=== PATIENT | female | born 2000 | race Caucasian/White ===

== ENCOUNTER 2023-03-11 07:24 | Day surgery (SDC) | payer OTHER ==
[~2023-03-11] VITALS: Ht 157.5 cm; Wt 96.7 kg
[2023-03-11 07:50] VITALS: BP 114/80; PULSE 80; TEMP 97.6
[2023-03-11] MEDS ORDERED: ZYRTEC 10MG10 MG PO (07:55)
--- NOTE | 2023-03-11 08:10 | NUR ---
The patient ambulated back to [facility] independently using a steady gait and appeared to tolerate the activity well. Vital signs obtained. Consent signed. 20G IV started in right hand with one stick, LR infusng. Assessment completed. Home medications reconcilled. brought back to be at bedside. Warm blanket provided. Call light is within reach. Denies any further needs.
[2023-03-11 09:38] VITALS: BP 101/57; PULSE 71; TEMP 96.7
[2023-03-11 09:45] VITALS: BP 110/70; PULSE 74
[2023-03-11 10:00] VITALS: BP 101/67; PULSE 71
--- NOTE | 2023-03-11 10:17 | NUR ---
0938- PATIENT RETURNS TO [facility] VIA CART. PT AWAKE AND ALERT. RESPIRATIONS UNLABORED. AMBULATED TO RECLINER CHAIR WITH 2:1 SBA. PT DENIES NAUSEA OR ABDOMINAL PAIN. HOOKED UP TO MONITOR AND VS OBTAINED. CALL LIGHT AT SIDE AND FAMILY PRESENT. 0946- PATIENT TOLERATING GRAPE AND MUFFIN WITHOUT NAUSEA. 0959- D/C INSTRUCTIONS REVIEWED WITH PATIENT. PT VERBALIZED UNDERSTANDING AND A COPY OF INSTRUCTIONS PROVIDED IN D/C FOLDER. 1005- PATIENT DRESSES SELF. 1010- DR. ALVARADO IN ROOM SPEAKING WITH PATIENT. 1017- PATIENT DISCHARGED FROM UNIT VIA W/C TO A PERSONAL VEHICLE. PT LEFT HOSPITAL IN STABLE CONDITION.
== END 2023-03-11 10:17 | disposition home or self-care (01) ==
LOC: SDCO 07:24
DX: R10.9 Unspecified abdominal pain (principal); R19.5 Other fecal abnormalities; R14.0 Abdominal distension (gaseous); R15.2 Fecal urgency; R19.7 Diarrhea, unspecified; K76.0 Fatty (change of) liver, not elsewhere classified; R19.4 Change in bowel habit
CPT/HCPCS: J2704; J7120